=== PATIENT | male | born 1935 | race Caucasian/White ===

== ENCOUNTER 2016-09-20 10:11 | Inpatient (IN) | payer MEDICARE, OTHER ==
--- NOTE | 2016-08-19 14:06 | PAT Medication Instructions ---
Service Date Aug 19, 2016. Current Home Medication List Biotin (Biotin), 1 TAB PO QPM Cholecalciferol (Vitamin D3), 5,000 UNIT PO QAM Glucosamine-Chondroitin (Cosamin Ds), 1 TAB PO BID Multiple Vitamins W/ Minerals (Centrum Adults), 1 TAB PO QAM Omeprazole (Prilosec), 40 MG PO QAM Rivaroxaban (Xarelto), 1 TAB PO QAM Rosuvastatin Calcium (Crestor), 5 MG PO HS Medication Instructions For Your Scheduled Surgery - Instructions to be given by Cardiology: Rivaroxaban (Xarelto), 1 TAB PO QAM - Hold the following medications 2 weeks prior to surgery: Biotin (Biotin), 1 TAB PO QPM Glucosamine-Chondroitin (Cosamin Ds), 1 TAB PO BID - Hold the following medications the morning of surgery: Cholecalciferol (Vitamin D3), 5,000 UNIT PO QAM - Take the following medications the morning of surgery with a sip of water OTHERWISE NOTHING TO EAT OR DRINK AFTER MIDNIGHT: Omeprazole (Prilosec), 40 MG PO QAM - Take the following medications as scheduled the night before surgery: Rosuvastatin Calcium (Crestor), 5 MG PO HS If you have any questions please call us at [phone] or [phone] or [phone]
[2016-08-19 15:05] LABS: BASO % 0.9 %; BASO ABS # 0.06 K/uL (0-0.2); COMPLETE YES; EOS % 1.2 %; HEMATOCRIT 41.8 % (42-52); IG% 0.2 %; LYMPH % 24.9 %; LYMPH ABS # 1.65 K/uL (1.2-3.4); MEAN CELL VOLUME 90.9 fL (80-100); MEAN CORPUSCULAR HEMOGLOBIN 31.7 pg (25-34); MEAN CORPUSCULAR HGB CONC 34.9 g/dl (32-36); MEAN PLATELET VOLUME 11.4 fL (7.4-10.4); MONO % 7.5 %; NEUT % 65.3 %; PLATELET COUNT 124 K/uL (130-400); WHITE BLOOD COUNT 6.63 K/uL (4.8-10.8)
[2016-08-19 15:21] LABS: INR 1.3 (0.9-1.1); PARTIAL THROMBOPLASTIN RATIO 1.4; PROTHROMBIN TIME (PATIENT) 14.4 SECONDS (9.0-12.0)
--- NOTE | 2016-08-19 15:57 | DIAGNOSTIC IMAGING REPORT ---
CHEST PREADMISSION(PA/LAT) CLINICAL HISTORY: Preoperative chest COMPARISON STUDY: No previous studies for comparison. FINDINGS: The heart is at the upper limits of normal in size. There is a left subclavian dual-chamber central venous pacemaker. There are postsurgical changes of a midline sternotomy, and aortic valve replacement. There is no failure. There is no lobar consolidation. Minimally prominent basilar markings, likely represent atelectasis/scarring. No pleural effusions are visualized.[ IMPRESSION: Postsurgical changes. No active disease in the chest. Electronically signed by: Anoop Dover M.D. 08/19/2016 3:56 PM
--- NOTE | 2016-09-14 21:32 | HISTORY & PHYSICAL EXAMINATION ---
DATE OF ADMISSION: 09/20/2016 CHIEF COMPLAINT: Bilateral knee pain, left side greater than right. HISTORY OF PRESENT ILLNESS: The patient is an 81-year-old gentleman from [place], who presents for surgical treatment of the left knee. He has got a long history of bilateral knee pain and discomfort, left side greater than the right. He was initially treated in [place] and then moved to this area several years ago. He has had both steroid shots and viscosupplementation. He never had any surgery. He has been doing physical therapy. He wears a brace. The pain has gradually gotten worse over time. He cannot take NSAIDs due to his Xarelto use for his atrial fibrillation. He takes Narcotics for pain. The pain has become more incapacitating and he would like to proceed with left knee replacement. PAST MEDICAL HISTORY: 1. Atrial fibrillation. 2. Status post aortic valve replacement. 3. History of DVT in 2005 after heart surgery. 4. Coronary Artery disease. 5. Hiatal hernia. PAST SURGICAL HISTORY: Include: 1. Four vessel cardiac bypass. 2. Aortic valve replacement. 3. Pacemaker placement. 4. Right rotator cuff surgery. 5. Umbilical hernia repair. 6. Left rotator cuff surgery. 7. Bilateral carpal tunnel release. ALLERGIES: TO LATEX, BETADINE AND CEPHALEXIN. CURRENT MEDICINES: Include; 1. Crestor 10 mg daily. 2. Xarelto 20 mg. 3. Vitamin D3. 4. Centrum Silver. 5. Omeprazole. SOCIAL HISTORY: An 81-year-old male. He is . FAMILY HISTORY: Noncontributory. REVIEW OF SYSTEMS: Significant for cardiac history. He has no cardiac symptoms. He is followed by Dr. Blanco in [place]. He does have a history DVT and PE. No known clotting disorder. PHYSICAL EXAMINATION: GENERAL: Reveals a healthy pleasant elderly male. He looks to be in reasonably good health. HEENT: Benign. NECK: Supple. No lymphadenopathy. LUNGS: Clear to auscultation. HEART: Has a regular rate and rhythm. ABDOMEN: Soft, nontender and nondistended. EXTREMITIES: Grossly neurovascularly intact except as follows: Examination of the left knee reveals the patient walks with a waddling gait. He has got varus alignment to his knee. Tender over the medial joint line. Small knee effusion. Range of motion is 5-120. No instability. No pain with hip motion. X-RAYS: X-rays of the knees reveal advanced bilateral medial compartment DJD; the left side is a bit worse than the right. He has got complete loss of his medial joint space. ASSESSMENT: An 81-year-old male with significant underlying heart disease, status post bypass grafting, valve replacement and pacemaker placement with advanced left knee degenerative joint disease. He would like to proceed with a left knee replacement. PLAN: We are going to take him to the operating room and do a left total knee replacement. The risks and benefits of this procedure were explained to the patient including but not limited to DVT, PE, , infection, neurological injury, vascular injury, bleeding problems, pain, limited range of motion, stiffness, failure to relieve his symptoms, incomplete relief of symptoms, need for further surgery in the future, fracture, leg length inequality, nerve palsy, etc. The patient understands and desires to proceed. Informed consent was obtained. We did have him see his bioinformatics computer scientist, Dr. Blanco in [place] and he has been cleared for surgical treatment. HE IS ALLERGIC TO CEPHALOSPORINS. I will be given vancomycin preoperatively. We did talk to him about holding his Xarelto 3 days preop. He also has an IVC filter in place, so concern for PE is a little bit lesser with that. We will start him probably on prophylactic dose of Xarelto 24 hours postop and then increase it to 20 mg probably 48-72 hours afterwards. MTDD
[2016-09-20] VITALS (7 sets, daily range): BP systolic 104–158; BP diastolic 62–90; PULSE 71–96; TEMP 36.3–36.9; O2SAT 95–97; Ht 172.7 cm; Wt 89.5 kg
[~2016-09-20] VITALS: Ht 172.7 cm; Wt 89.5 kg
[~2016-09-20 10:11] MED LIST: ACETAMINOPHEN 500 MG TAB PO SCH; BIOT1TAB5 PO; BUPIVACAINE 0.25% 30 ML VIAL ONE; BUPIVACAINE 0.5 % 5 MG/1 ML PF 10ML VIAL ONE; BUPIVACAINE LIPOSOME 266 MG, BUPIVACAINE/EPINEPHRINE INJ 50 ML, SODIUM CHLORIDE 0.9% PF... INFIL SCH; CHOL20007 PO; DEXTROSE 5% IV SCH; FAMOTIDINE 20 MG TAB PO SCH; GABAPENTIN 300 MG CAP PO SCH; GLUC500T35 PO; LACTATED RINGER'S 1000ML IV SCH; METOCLOPRAMIDE HCL 10 MG TAB PO SCH; MULT-610 PO; OMEP40CA PO; ROSU5TAB PO; SCOPOLAMINE 1.5 MG TDSY TD SCH; VANCOMYCIN IV SCH; XRL10 PO
[2016-09-20 11:03] LABS: INR 1.1 (0.9-1.1); PARTIAL THROMBOPLASTIN RATIO 1.1; PROTHROMBIN TIME (PATIENT) 11.4 SECONDS (9.0-12.0)
--- NOTE | 2016-09-20 11:09 | History & Physical Bridge Note ---
H&P Re-Evaluation Bridge Note: I have examined the patient, reviewed the History & Physical and in the interval since the performance of the History & Physical I have noted the following changes of clinical significance: No changes noted
[2016-09-20] MEDS ORDERED: MIDAZOLAM HCL 1 MG/ML 2ML VIAL ONE ×2 (12:05→12:43)
[2016-09-20] MEDS ORDERED: BUPIVACAINE LIPOSOME 1/3% 266 MG/20 ML VIAL INFIL ONE (13:02)
[2016-09-20] MEDS ORDERED: PHENYLEPHRINE 100MCG/ML 5ML SYR ONE ×2 (13:51→14:17)
[2016-09-20] MEDS ORDERED: PROPOFOL IV EMULSION 10 MG/ML 20 ML VIAL IV ONE ×2 (13:51)
[2016-09-20] MEDS ORDERED: BACITRACIN 50000 UNIT VIAL IR ONE (14:19)
--- NOTE | 2016-09-20 14:53 | [facility] Post Operative Brief Note ---
Immediate Operative Summary Operative Date Sep 20, 2016. Pre-Operative Diagnosis Left Knee Degenerative Joint Disease Post-Operative Diagnosis Left Knee Degenerative Joint Disease Procedure(s) Performed Left Total Knee Arthroplasty Surgeon Dr. Stefan Camacho [facility] Liaison Surgeon(s) Lan Doan PA-C Estimated Blood Loss 50cc Findings Left Knee DJD Fluids (cc crystalloids) 1500 Specimens A. Left Knee Bone and Tissue Drains None Anesthesia Spinal Complication(s) None Disposition Recovery Room / PACU
[2016-09-20] MEDS ORDERED: BISACODYL 10 MG SUPP PR PRN (15:00)
[2016-09-20] MEDS ORDERED: METOCLOPRAMIDE HCL INJ 5 MG/ML 2 ML VIAL IV PRN (15:00)
[2016-09-20] MEDS ORDERED: MoRPHine SULFATE 2 MG/ML CARP IV PRN (15:00)
[2016-09-20] MEDS ORDERED: ZOLPIDEM TARTRATE 5 MG TAB PO PRN (15:00)
[2016-09-20] MEDS ORDERED: TAMSULOSIN HCL 0.4 MG CAP PO PRN (15:00)
[2016-09-20] MEDS ORDERED: ONDANSETRON INJ 2 MG/ML 2 ML VIAL IV PRN (15:00)
[2016-09-20] MEDS ORDERED: MAGNESIUM HYDROXIDE SUSP 30 ML UDC PO PRN (15:00)
[2016-09-20] MEDS ORDERED: DiphenhydrAMINE HCL 50 MG/ML VIAL IV PRN (15:00)
[2016-09-20] MEDS ORDERED: ALUMINUM/MAGNESIUM/SIMETH (MAALOX MAX) 30 ML UDC PO PRN (15:00)
[2016-09-20] MEDS ORDERED: SILVER SULFADIAZINE 1% CR 50 GM JAR EXT PRN (15:00)
--- NOTE | 2016-09-20 15:14 | DIAGNOSTIC IMAGING REPORT ---
LEFT KNEE 2 VIEWS History: Left total knee arthroplasty. Degenerative arthritis. Postop. FINDINGS: The patient is status post a left total knee arthroplasty. The hardware is intact. No fracture or dislocation. Skin aniyah are in place. IMPRESSION: Left total knee arthroplasty. No evidence for hardware complication. Electronically signed by: Fabrice Fletcher M.D. 09/20/2016 3:12 PM Dictated Date/Time: 09/20/2016 3:12 PM
--- NOTE | 2016-09-20 15:23 | OPERATIVE REPORT ---
DATE OF OPERATION: 09/20/2016 PREOPERATIVE DIAGNOSIS: Left knee degenerative joint disease. POSTOPERATIVE DIAGNOSIS: Same. PROCEDURE PERFORMED: Left cemented posterior stabilized total knee arthroplasty. SURGEON: Stefan Camacho M.D. CAGE CLERK: Khoa Doan PA-C. COMPLICATIONS: None. ESTIMATED BLOOD LOSS: 50 mL. FLUID REPLACEMENT: 1500 mL crystalloid fluid replacement. TOURNIQUET TIME: 52 minutes at 300 mmHg. ANESTHESIA: Spinal with adductor canal block. DRAINS: None. SPECIMENS: Left knee sent for pathology. OPERATIVE INDICATIONS: The patient is an 81-year-old male with multiple underlying medical comorbidities, had a long history of bilateral knee pain and discomfort. He has been through extensive conservative care without adequate relief. The left knee continued to bother him and really limited his activities. He was seen by his director game and cleared for surgery. The patient would like to proceed with operative treatment. OPERATIVE FINDINGS: Operative findings revealed advanced left knee DJD. He had grade 4 [id number] disease of the medial and patellofemoral compartments. The lateral compartment was relatively well spared. He had a moderate sized joint effusion. OPERATIVE IMPLANTS: Operative implants consisted of: 1. Biomet Vanguard size 67.5 left posterior stabilized femoral component. 2. Biomet size 75 tibial tray. 3. A 10 mm posterior stabilized polyethylene bearing. 4. A 31 x 8 all poly patella. OPERATIVE PROCEDURE: The patient taken to the operating room, identified and placed on the operating table in supine position. All contact areas were appropriately padded. IV antibiotics were provided by anesthesia team. A spinal anesthetic and adductor canal block had been provided in the holding area. Hastings catheter was placed in sterile fashion. Left thigh tourniquet was then placed and left lower extremity was then prepped and draped in usual sterile fashion. Left leg was elevated and exsanguinated with Esmarch and tourniquet was placed at 300 mmHg. An anterior approach of the left knee was then performed through a longitudinal incision centered over the patella. Sharp dissection was carried out through the subcutaneous tissues down to the level of the extensor mechanism. A medial parapatellar arthrotomy incision was made. Some subperiosteal dissection was carried out medially. The fat pad was resected from beneath the patellar tendon. The lateral patellofemoral ligament was released. The patella was everted and knee was flexed. The osteophytes were taken off the distal femur. The ACL and PCL were then released from the distal femur and the tibia was subluxated anteriorly. The external tibial alignment jig was then placed in the anterior face of the tibia and adjusted 14 mm medially. Proximal tibial cut was made and removed about a millimeter of bone from the most deficient aspect of the medial tibial plateau. Tibia was then sized to a size 75. Some osteophytes were taken off medial and posteromedially. Attention was then drawn to the femur. The distal femur was entered with a sharp drill bit. Intramedullary canal was suctioned. A right 6 degree valgus cutting guide was placed. Distal femoral cutting block was pinned in place. Distal femoral cut was made to take an additional 3 mm of bone off the distal femur. The femur was then sized to a size 67.5. We did downsize this slightly. The AP cutting block was pinned parallel to the epicondylar axis, which was 5 degrees of external rotation. The anterior cut, anterior chamfer, posterior cut, posterior chamfer cuts were made. Box cutting guide was placed and adjusted slightly lateral and the box cut was made. Some osteophytes were taken off of the posterior aspect of the femur. The remnants of the medial and lateral menisci were excised. A trial femoral component was placed. Tibial tray was pinned in maximum external rotation and drill and stem punch were used to create defect in proximal tibia for the tibial tray. The knee was then trialed and a 10 mm insert fit most appropriately. Attention was then drawn to the patella. The patella was cleaned of all soft tissues. Patella thickness measured 22 mm, cut down to 14. It was sized to a size 31 patella. Lug holes were drilled for 31 patella. Lateral osteophyte was removed. Patella button was placed. Knee was taken through range of motion and the patella tracked nicely with no thumbs test. Attention was then drawn toward placement of permanent components. All trial components were removed. A bone plug was placed in the distal femur to limit blood loss. A double batch of Palacos G cement was mixed. After extensive irrigation, a size 70 left posterior stabilized femoral component, size 75 tibial tray, a 10 mm posterior stabilized polyethylene insert, and a 31 x 8 all poly patella then cemented in place. Knee was brought out into full extension until cement hardened. A final cement check was performed. Pericapsular tissues were injected with a total of 100 mL of a combination of 20 mL of Exparel, 30 mL of normal saline, 50 mL of 0.25% Marcaine with epinephrine. The tourniquet was then let down for a tourniquet time of 52 minutes. Hemostasis was assured with use of electrocautery. The extensor mechanism was then closed with a combination of #1 PDS suture and #1 Vicryl suture in a [id number] fashion. Extensor mechanism was checked and found to be intact. The subcutaneous tissues were then closed with 2-0 Dexon suture in a buried interrupted fashion. Skin was closed skin aniyah. Leg was then cleaned and dried and a sterile dressing of Xeroform, 4 x 4, sterile cast padding and Derrick bandage were applied. The patient then transferred to the recovery room in stable condition. The patient tolerated the procedure well with no complications. All needle and sponge counts were correct at the end of the operation. I attest to the content of the Intraoperative Record and any orders documented therein. Any exceptio ns are noted below.
--- NOTE | 2016-09-20 16:04 | Anesthesiology Progress Note ---
Anesthesia Post Op Note Date & Time Sep 20, 2016 at 16:03 Vital Signs Pain Intensity: 0 Vital Signs Past 12 Hours Date Time Temp Pulse Resp B/P Pulse Ox O2 Delivery O2 Flow Rate FiO2 09/20/16 15:54 37.1 81 18 112/63 99 Nasal Cannula 2 09/20/16 15:34 76 19 94 09/20/16 15:34 78 19 09/20/16 15:33 102/56 09/20/16 15:29 73 27 09/20/16 15:29 77 27 99 09/20/16 15:28 103/65 09/20/16 15:24 81 18 09/20/16 15:24 77 18 96 09/20/16 15:23 112/57 09/20/16 15:19 81 18 97 09/20/16 15:19 87 18 09/20/16 15:18 105/58 09/20/16 15:15 79 22 09/20/16 15:15 80 22 98 09/20/16 15:13 94/52 09/20/16 15:10 78 25 96 09/20/16 15:10 81 25 09/20/16 15:08 101/61 09/20/16 15:05 88 17 97 09/20/16 15:05 83 17 09/20/16 15:03 100/53 09/20/16 15:00 36.5 86 18 97/51 98 Mask 10 09/20/16 15:00 87 19 96 09/20/16 15:00 89 19 09/20/16 10:49 36.5 96 20 158/90 96 Room Air Notes Mental Status: alert / awake / arousable, participated in evaluation Pt Amnestic to Procedure: Yes Nausea / Vomiting: adequately controlled Pain: adequately controlled Airway Patency, RR, SpO2: stable & adequate BP & HR: stable & adequate Hydration State: stable & adequate Neuraxial Anesthesia: was administered, sensory block is resolving Anesthetic Complications: no major complications apparent
[2016-09-20] MEDS ORDERED: ATROPINE SULFATE 0.1 MG/ML 5ML SYR IV PRN (16:15)
[2016-09-20] MEDS ORDERED: EpHEDrine SULFATE INJ 50 MG/ML AMP IV PRN (16:15)
[2016-09-20] MEDS: CHECK SCOPOLAMINE PATCH PLACEMENT SCH (17:56)
[2016-09-20] MEDS: TRANEXAMIC ACID INJ 1,000 MG in SODIUM CHLORIDE 0.9% 100ML 100 ML IV SCH ×2 (17:57→17:58)
[2016-09-20] MEDS: D5W AND 1/2NSS + 20MEQ KCL 1,000 ML IV SCH (18:19)
[2016-09-20] MEDS: ACETAMINOPHEN 500 MG TAB PO SCH (18:20)
[2016-09-20] MEDS: FERROUS GLUCONATE 324 MG TAB PO SCH (19:06)
[2016-09-20] MEDS: KETOROLAC TROMETHAMINE 15 MG/ML VIAL IV. SCH (19:07)
[2016-09-20] MEDS ORDERED: NON-FORMULARY MEDICATION (Biotin 1 TAB) PO SCH (21:00)
[2016-09-20] MEDS: DOCUSATE SODIUM 100 MG CAP PO SCH (21:44)
[2016-09-20] MEDS: ROSUVASTATIN CALCIUM 5 MG TAB PO SCH (21:44)
[2016-09-20] MEDS ORDERED: VANCOMYCIN IV ONE (22:00)
[2016-09-20] MEDS ORDERED: SODIUM CHLORIDE 0.9% IV ONE (22:00)
[2016-09-21] MEDS: KETOROLAC TROMETHAMINE 15 MG/ML VIAL IV. SCH ×3 (00:03→12:21)
[2016-09-21] MEDS: CHECK SCOPOLAMINE PATCH PLACEMENT SCH ×4 (00:03→23:21)
[2016-09-21] MEDS: ACETAMINOPHEN 500 MG TAB PO SCH ×3 (02:00→17:48)
[2016-09-21 03:26] VITALS: BP 119/71; PULSE 73; TEMP 36.8; O2SAT 95
[2016-09-21] MEDS: TRAMADOL HCL 50 MG TAB PO PRN ×2 (04:16→08:57)
[2016-09-21] MEDS: D5W AND 1/2NSS + 20MEQ KCL 1,000 ML IV SCH ×2 (04:17→14:20)
[2016-09-21 06:03] LABS: HEMATOCRIT 36.5 % (42-52); MEAN CELL VOLUME 89.7 fL (80-100); MEAN CORPUSCULAR HEMOGLOBIN 31.2 pg (25-34); MEAN CORPUSCULAR HGB CONC 34.8 g/dl (32-36); MEAN PLATELET VOLUME 10.9 fL (7.4-10.4); PLATELET COUNT 114 K/uL (130-400); RED BLOOD COUNT 4.07 M/uL (4.7-6.1); WHITE BLOOD COUNT 9.35 K/uL (4.8-10.8)
[2016-09-21 06:36] LABS: BUN/CREATININE RATIO 16.6 (10-20); CALCIUM 8.1 mg/dl (8.5-10.1); CREATININE 1.3 mg/dl (0.60-1.40); POTASSIUM 4.1 mmol/L (3.5-5.1)
[2016-09-21 08:08] VITALS: BP 127/80; PULSE 90; TEMP 36.7; O2SAT 97
[2016-09-21] MEDS: PANTOprazole SOD 40 MG TAB PO SCH (08:51)
[2016-09-21] MEDS: FERROUS GLUCONATE 324 MG TAB PO SCH ×3 (08:51→17:48)
[2016-09-21] MEDS: DOCUSATE SODIUM 100 MG CAP PO SCH ×2 (08:51→20:37)
[2016-09-21] MEDS: MULTIVITAMIN TAB PO SCH (08:52)
[2016-09-21] MEDS: CHOLECALCIFEROL 1000 INTER.UNIT TAB PO SCH (08:52)
[2016-09-21] MEDS ORDERED: NON-FORMULARY MEDICATION (Omeprazole (Prilosec) 40 MG) PO SCH (09:00)
[2016-09-21] MEDS ORDERED: CEROVITE ADV FORMULA TAB PO SCH (09:00)
--- NOTE | 2016-09-21 10:07 | PROGRESS NOTE ---
DATE: 09/21/2016 DATE: 09/21/2016. SUBJECTIVE: An 81-year-old gentleman postop day 1 from a left knee replacement. He is doing pretty well. Some pain but managed. No chest pain, shortness of breath. Not feeling dizzy or lightheaded. OBJECTIVE: VITAL SIGNS: Temperature 36.7. Vital signs stable. PHYSICAL EXAMINATION: GENERAL: Pleasant elderly male. He is awake, alert and oriented. Seems to be just mildly confused. LUNGS: Clear to auscultation. HEART: Regular rate and rhythm. ABDOMEN: Soft, nontender, nondistended. EXTREMITY EXAMINATION: Grossly neurovascularly intact except as follows: Examination of the left lower extremity reveals the leg to be well aligned. He can dorsiflex and plantarflex his foot appropriately. He is neurologically intact. LABORATORY DATA: Hemoglobin 12.7, hematocrit 36.5. Electrolytes are stable. ASSESSMENT: An 81-year-old male with multiple underlying medical comorbidities postop day 1 from a left knee replacement, doing pretty well. His pain is controlled. Maybe just a slight bit of confusion which would not be too unexpected. He has got no focal neurological issues. He is neurologically intact. Will restart his Xarelto today at a lower dose and increase at discharge. PLAN: 1. DVT prophylaxis including thigh-high TEDs, SCDs, and Xarelto. We will put him on prophylactic dose for the next day or two and increase him back to his therapeutic dose upon discharge. He does have an IVC filter in place. 2. PT/OT. Weight bear as tolerated. Left total knee protocol. 3. Pain control, doing pretty well with current pain regimen. We will have to be careful to limit narcotics to avoid confusion. 4. Disposition: He is planning to be discharged to home likely with some home health once adequately recovered.
[2016-09-21 13:30] VITALS: BP 119/75; PULSE 91; TEMP 37; O2SAT 99
[2016-09-21 15:25] VITALS: BP 110/67; PULSE 90; TEMP 36.6; O2SAT 97
[2016-09-21] MEDS: RIVAROXABAN 10 MG TAB PO SCH (15:53)
[2016-09-21] MEDS: ROSUVASTATIN CALCIUM 5 MG TAB PO SCH (20:37)
[2016-09-21 23:18] VITALS: BP 115/68; PULSE 99; TEMP 37; O2SAT 96
[2016-09-22] MEDS: TRAMADOL HCL 50 MG TAB PO PRN ×4 (00:46→12:17)
[2016-09-22] MEDS: ACETAMINOPHEN 500 MG TAB PO SCH ×2 (02:00→02:22)
[2016-09-22 07:50] VITALS: BP 133/78; PULSE 105; TEMP 37.5; O2SAT 99
[2016-09-22] MEDS ORDERED: ACET-1138 PO (07:58)
[2016-09-22] MEDS ORDERED: ULT50X PO (07:58)
[2016-09-22] MEDS: CHECK SCOPOLAMINE PATCH PLACEMENT SCH (08:00)
--- NOTE | 2016-09-22 08:00 | Discharge Instructions ---
Discharge Instructions Admission Reason for Admission: Left Knee Degenerative Joint Disease Discharge Discharge Diagnosis / Problem: Left Knee Replacement Discharge Goals Goal(s): Decrease discomfort, Improve function, Increase independence, Improve disease control, Therapeutic intervention Activity Recommendations Activity Limitations: per Instructions/Follow-up section Weightbearing Status: Left weightbearing . Instructions / Follow-Up Instructions / Follow-Up ACTIVITY RECOMMENDATIONS: Physical Therapy: * You will go to physical therapy three times each week for four to six weeks after your surgery in order to regain your knee range of motion and to retrain your knee to work properly. * It is just as important to make sure you are getting your knee perfectly straight as it is to regain your knee bend. * Taking a pain pill an hour before therapy can help you have a more productive and comfortable therapy session. Home Exercise: * You were shown a series of exercises (heel props, heel slides, etc.) in the hospital. Do these exercises three to four times each day including the exercises you were shown in physical therapy. Walking: * Get up and walk several times each day. For the first four weeks, try not to stand or walk for more than one hour at a time. If you do stand or walk for more than one hour, you will not hurt anything, but your knee and leg will likely swell. * As you feel comfortable, you may change from the walker or crutches to a cane and then to independent walking. MEDICATIONS: New Medicine: * You will likely be taking one or more of these medications: 1. Tramadol - A quick and shorter-acting pain medication. Take one to two tablets every four to six hours to lessen your pain. * The most common side effects of pain medicine and iron are nausea and constipation. If nausea or constipation is too much of a problem or if you have any questions about your new medicines or doses, call [facility] at . We will try to help you manage these issues. VERY IMPORTANT TO READ AND REVIEW" Pain: * The immediate post-operative period after knee replacement surgery is often quite painful. * You are given a prescription for pain medicine. You should take it, as directed, when you need it, especially before physical therapy and before going to bed. Pain that interferes with sleep is very common and can last several months. * You will likely need pain medicine for the first four to six weeks. It will not stop all of the pain. The pain will lessen and as you feel better, you may change to milder pain medicine such as Tylenol. * The most common side effects of pain medicine are nausea and constipation, so don't take more than you need. SPECIAL CARE INSTRUCTIONS: TEDs/Elastic Stockings: * The white elastic stockings help limit swelling and prevent blood clots from forming in your legs. The more you wear them, the more they work. * Wear them for six weeks after knee replacement surgery and four weeks after partial knee replacement. Prevention of Infection: * Take antibiotics one hour before any dental cleaning, dental work, urological procedure, gastrointestinal procedure or any invasive surgery in order to prevent your new joint from getting infected. * You may get the antibiotics from the doctor performing the procedure or you may call our office at before and we will call in a prescription to the pharmacy of your choice. Things to Watch For: * Drainage from the incision site that occurs more than one week after your surgery. * Severely increased knee/leg pain or swelling. * Increased redness at the incision site. * Fever above 102 degrees Fahrenheit. * Unusual chest pain or shortness of breath. * Unusual pain or burning with urination. Call [facility] at with any of the above problems or if you have any questions about your medicines or recovery. FOLLOW UP VISIT: Make an appointment to see your doctor for approximately two weeks after surgery for a progress check and staple removal by calling the office at . Current Hospital Diet Patient's current hospital diet: Regular Diet Discharge Diet Recommended Diet: Regular Diet Procedures Procedures Performed: Left Total Knee Arthroplasty Pending Studies Studies pending at discharge: no Medical Emergencies . Who to Call and When: Medical Emergencies: If at any time you feel your situation is an emergency, please call 311 immediately. . Non-Emergent Contact Non-Emergency issues call your: Surgeon . "Provider Documentation" section prepared by Stefan Camacho. VTE Core Measure Inpt VTE Proph given/why not?: Other Anticoagulation, T.E.D. Stockings, SCD's
--- NOTE | 2016-09-22 08:46 | PROGRESS NOTE ---
DATE: 09/22/2016 SUBJECTIVE: An 81-year-old gentleman postop day 2 from a left knee replacement. He is doing pretty well. He has had some mild intermittent confusion. He complains of some isolated knee pain. No chest pain or shortness of breath. OBJECTIVE: VITAL SIGNS: Temperature 37.5. Vital signs stable. PHYSICAL EXAMINATION: GENERAL: Reveals a pleasant elderly male. He is sitting up in bed and just kind of looks tired and fatigued. After talking to him a bit and arousing him, he is awake, alert and appropriate. It did take him a little while to come around. Denies any chest pain or shortness of breath. Not feeling dizzy or lightheaded. OBJECTIVE: VITAL SIGNS: Temperature is 37.5. Vital signs stable. PHYSICAL EXAMINATION: GENERAL: Reveals a pleasant elderly male. He is sitting up in bed and looks reasonably comfortable. LUNGS: Clear to auscultation. HEART: Regular rate and rhythm. ABDOMEN: Soft, nontender, nondistended. EXTREMITIES: Grossly neurovascularly intact except as follows: Examination of the left lower extremity reveals the leg to be well aligned. Dressing is clean, dry, and intact. He can dorsiflex and plantarflex his foot appropriately. He is neurologically intact. ASSESSMENT: An 81-year-old male postoperative day 2 from a left knee replacement, doing reasonably well. He is a little bit confused, which is not too unusual, but seems to be improved after waking him up and arousing him some. PLAN: 1. DVT prophylaxis including thigh-high TEDs, SCDs, and back on his Xarelto. 2. PT/OT. Weightbearing as tolerated. Left total knee protocol. 3. Pain control, doing pretty well with current pain regimen. We just have to be careful with narcotics as it is going to add to his confusion. 4. Disposition: Plan to discharge to home once medically stable.
[2016-09-22] MEDS: FERROUS GLUCONATE 324 MG TAB PO SCH (09:36)
[2016-09-22] MEDS: DOCUSATE SODIUM 100 MG CAP PO SCH (09:36)
[2016-09-22] MEDS: CHOLECALCIFEROL 1000 INTER.UNIT TAB PO SCH (09:37)
[2016-09-22] MEDS: MULTIVITAMIN TAB PO SCH (09:37)
[2016-09-22] MEDS: PANTOprazole SOD 40 MG TAB PO SCH (09:38)
[2016-09-22 10:31] VITALS: BP 133/78; PULSE 105; TEMP 37.5; O2SAT 99
[2016-09-22] MEDS: RIVAROXABAN 10 MG TAB PO SCH (12:17)
--- NOTE | 2016-09-30 15:00 | DISCHARGE SUMMARY ---
ADMITTING PHYSICIAN AND SURGEON: Dr. Camacho. ADMITTING DIAGNOSIS: Left knee degenerative joint disease. SURGERY PERFORMED: Left total knee arthroplasty. SECONDARY DIAGNOSES: Atrial fibrillation, aortic valve replacement, history of DVT, coronary artery disease, hiatal hernia. HISTORY AND PHYSICAL EXAMINATION: Well documented in patient's chart. HOSPITAL COURSE: The patient was 09/20/2016 underwent total knee replacement. He tolerated the procedure well. There were no complications. He was transferred to PACU postoperatively and later to the orthopedic floor for further care. He was given vancomycin for antibiotic prophylaxis, ROBERT stockings, SCDs and Xarelto for DVT prophylaxis. Hemoglobin, hematocrit and vital signs were monitored during his hospital stay and remained stable. He did not require any blood transfusions. He had some mild confusion postoperatively which did resolve. There were no complications. By postoperative day 2, he was tolerating a general diet. Pain was controlled with oral pain medicine. He was participating in physical therapy and had no signs or symptoms of deep vein thrombosis. On postop day 2, he was discharged home in good condition, given printed discharge instructions including prescriptions for extra strength Tylenol and tramadol. Continue his home medicines including Xarelto, continue physical therapy, weightbearing as tolerated. ROBERT stockings and follow up in 10-12 days or sooner if there are problems or concerns.
== END 2016-09-22 12:25 | disposition home or self-care (01) | DRG 470 ==
LOC: ENRESERVTM → ENRESERVDT → C.ACU 10:11 → C.3E 11:05
PROVIDERS: ADMIT Orthopaedic Surgery Sports Medicine; ATTEND Orthopaedic Surgery Sports Medicine
PROC: 0SRD0J9 Replacement of Left Knee Joint with Synthetic Substitute, Cemented, Open Approach (ICD-10-PCS; principal; 2016-09-20 12:15)
DX: M17.12 Unilateral primary osteoarthritis, left knee (principal); I48.91 Unspecified atrial fibrillation; I25.10 Atherosclerotic heart disease of native coronary artery without angina pectoris; R41.0 Disorientation, unspecified; Z95.0 Presence of cardiac pacemaker; Z86.718 Personal history of other venous thrombosis and embolism; Z98.61 Coronary angioplasty status; Z95.2 Presence of prosthetic heart valve